=== PATIENT | female | born 1955 | race Caucasian/White ===

== ENCOUNTER 2019-02-04 19:58 | Emergency (ER) | payer OTHER ==
[~2019-02-04] VITALS: Ht 154.9 cm; Wt 69.4 kg
[2019-02-04 20:58] LABS: ABSOLUTE NEUTROPHILS 6.2 thou/uL (1.4-8.2); BASOPHILS 0.8 % (0.0-2.0); EOSINOPHILS 1.7 % (0.0-3.0); HEMOGLOBIN 14.7 gm/dL (12.0-15.0); LYMPHOCYTES 38.2 % (24.0-44.0); MCH 32.7 pg (26.0-34.0); MCHC 34.2 g/dL (28.0-37.0); MCV 95.6 fL (80.0-100.0); MONOCYTES 7.7 % (1.0-8.0); PLATELET COUNT 387 thou/uL (150-400); POLYS 51.6 % (36.0-66.0)
[2019-02-04 21:01] LABS: ANION GAP 9 mmol/L (7-16); BUN 22 mg/dL (7-18); CALCIUM 9.7 mg/dL (8.5-10.1); CHLORIDE 97 mmol/L (98-107); CO2 28 mmol/L (21-32); CREATININE 0.8 mg/dL (0.6-1.0); GLUCOSE 106 mg/dL (74-106); POTASSIUM 3.6 mmol/L (3.5-5.1); SODIUM 134 mmol/L (136-145)
[2019-02-04] MEDS ORDERED: COZAAR 50 MG TA50 MG PO (21:03)
[2019-02-04] MEDS ORDERED: ASPIRIN EC81 M1 PO (21:04)
[2019-02-04] MEDS ORDERED: HYDROCHLOROTHIA25 M2 PO (21:04)
[2019-02-04] MEDS ORDERED: [UNRECOGNIZED DRUG - OTHER] (21:05)
[2019-02-04 21:10] LABS: TROPONIN-I <0.06 ng/mL (<0.06)
[2019-02-04 22:33] VITALS: BP 122/76
--- NOTE | 2019-02-05 07:52 | EKG ---
[address] [address] ELECTROCARDIOGRAM REPORT Name: ADX GABRIEL Room #: DEP ANDALUSIA HEALTHGiorgio#: [id number] ������������������ Admission: 02/04/19 ������������������ Attend Phys: Discharge: 02/04/19 ������������������ Date of : 51 Report #: [id number] ����������������������������������������������������������������� [id number] THIS REPORT FOR: //name// [facility] ED Test Date: 2019-02-04 Test Time: 20:11:23 Pat Name: DAX GABRIEL Department: Room: Gender: F [employer]: : 1955 Requested By: Klaus Cesar Order Number: [id number] MD: Kar Mims Measurements Intervals [place] Rate: 93 P: 59 NH: 172 QRS: -45 QRSD: 98 T: 57 QT: 370 QTc: 461 Interpretive Statements Sinus tachycardia Ventricular bigeminy Left anterior fascicular block Abnormal R-wave progression, late transition Baseline wander in lead(s) V1,V4,V5 No previous ECG available for comparison Electronically Signed On 02-05-2019 7:51:53 CDT by Kar Mims [email or web address] ��������������������������������������������� <ELECTRONICALLY SIGNED> ���������������������������������������� By: Kar Mims MD ��������������������������������������������� 02/05/19 0751 10 10 Kar Mims MD /EPI
== END 2019-02-04 22:34 | disposition home or self-care (01) ==
LOC: ER 19:58
PROVIDERS: Emergency Medicine
DX: R00.2 Palpitations (principal); I10 Essential (primary) hypertension; E78.5 Hyperlipidemia, unspecified; F17.210 Nicotine dependence, cigarettes, uncomplicated; Z88.8 Allergy status to other drugs, medicaments and biological substances